=== PATIENT | male | born 2000 | race Caucasian/White ===

== ENCOUNTER 2023-09-11 11:03 | Outpatient (AMB) | payer BC, SELFPAY ==
[2023-09-11 11:10] VITALS: BP 116/78; PULSE 80; O2SAT 97; BMI 36.9
--- NOTE | 2023-09-11 11:10 | A.OFFPC_ITS ---
Vital Signs 09/11/23 11:10 Height 6 ft Weight 272 lb 4 oz BMI 36.9 BP 116/78 Blood Pressure Location Rt brachial Position Sitting Pulse 80 Pulse Source Pulse Oximeter Pulse Oximetry (%) 97 Oxygen Delivery Method Room Air Intake Visit Reasons: Est Care Intake Note: Pt is here to est care Allergies No Known Allergies Allergy (Verified 09/11/23 11:19) Medication List - Last Reconciled 09/11/23 by NATHANIEL Macedo No Known Home Meds Tobacco use date assessed: 09/11/23 Dental Screening Dental Screen Date: 09/11/23 Did you have a dental visit in the last 12 months?: No Did you have a dental problem in the last 6 months where you did not have access to dental care?: No Was dental information given to patient?: Patient has dentist HPI HPI Comments History of Present Illness Details This is a 23-year-old male who I am meeting for the 1st time. He will send us records from his previous provider. Will order labs today. Patient is currently offering complaints of postnasal drip for the past 2 years which is causing sore throat. States he has not tried any medication yet for relief, has just tried drinking water and trying to stay hydrated. Denies recent fever, shortness of breath, chest pain. [facility] Medical History (Updated 09/11/23 @ 11:46 by NATHANIEL Macedo) Testicular torsion Family History Paternal Grandfather Mental health disorder Diabetes Mother No problems noted. Social History Housing: Apartment Patient Tobacco Use Status: Never used Tobacco e-Cigarette/Vaping Use: Never Used Second Hand Smoke Exposure: No service: No Current occupational status: employed Current occupation: [employer] Current occupational exposures/hazards: Yes Cognitive needs: No Hearing needs: No Vision needs: No Questionnaire PHQ-9 Over the last 2 weeks, how often have you been bothered by any of the following problems? 1. Little interest or pleasure in doing things: not at all 2. Feeling down, depressed, or hopeless: not at all 3. Trouble falling or staying asleep, or sleeping too much: not at all 4. Feeling tired or having little energy: not at all 5. Poor appetite or overeating: nearly every day 6. Feeling bad about yourself - or that you are a failure or have let yourself or your family down: not at all 7. Trouble concentrating on things, such as reading the newspaper or watching television: not at all 8. Moving or speaking so slowly that other people could have noticed. Or the op posite - being so fidgety or restless that you have been moving around a lot more than usual: not at all 9. Thoughts that you would be better off or of hurting yourself in some way: not at all Total score: 3 Depression Screening Interpretation: Negative Depression Screening Done: Yes 47825 - PHQ-9 Billing: Yes Source: Developed by Drs. Sam Avelar, Lorna Morton, Darren Esquivel and colleagues, with an educational jovita from [employer]. Thrive Questionnaire Date Thrive assessed: 09/11/23 I am a: Patient What is your living situation today?: I have a steady place to live Within the past 12 months, did the food you bought not last and you didn't have the money to get more?: Never true Within the past 12 months, did you worry whether your food would run out before you got money to buy more?: Never true Do you have trouble paying for medicines?: Yes Do you have trouble getting transportation to medical appointments?: No Do you have trouble paying your heating and electricity bill?: Yes Do you have trouble taking care of your child, family member or friend?: No Do you have trouble with day-to-day activities such as bathing, preparing meals, shopping, managing finances, etc.?: No Are you currently unemployed and looking for a job?: No Are you interested in more education?: No THRIVE Score: 1 AUDIT C Alcohol Use Questionnaire (AUDIT-C) 1. How often do you have a drink containing alcohol?: Never Total Score: 0 BEATRIS-7 AMB Questionnaire BEATRIS-7 Date BEATRIS - 7 assessed: 09/11/23 Feeling nervous, anxious, or on edge: 0 = Not at all Not being able to stop or control worryin = Not at all Worrying too much about different things: 0 = Not at all Trouble relaxin = Not at all Being so restless that it is hard to sit still: 0 = Not at all Becoming easily annoyed or irritable: 0 = Not at all Feeling afraid as if something awful might happen: 0 = Not at all Total BEATRIS-7 score (0-4 normal; 5-9 mild; 10-14 moderate; 15-21 severe): 0 Source: Developed by Drs. Sam Avelar, Lorna Morton, Darren Esquivel and colleagues, with an educational jovita from [employer]. BEATRIS-7 Assessment Billing BEATRIS-7 Assessment Tool: BEATRIS-7 Assessment 05066 Review of Systems Const Details: Constitutional : No Weight loss, No Fever, No Chills, No Fatigue, No Malaise ENT/Mouth : Admits sore throat, No Rhinorrhe, Admits post nasal drip Eyes: No Eye Pain, No Swelling, No Redness Cardiovascular : No Chest Pain, No SOB, No Dyspnea on Exertion, No Orthopnea, No Edema, No Palpitations Respiratory : No Cough, No Sputum, No Wheezing Musculoskeletal : Admits upper and lower back pain. Neuro : No Weakness, No Numbness, No Dizziness, No Headache Psych : No Anxiety/Panic, No Depression All other systems reviewed and are negative Physical exam (Primary Care) Vital Signs: Last Vital Signs Pulse 80 09/11/23 11:10 BP 116/78 09/11/23 11:10 Pulse Ox 97 09/11/23 11:10 Oxygen Delivery Method Room Air 09/11/23 11:10 BMI result Body Mass Index 36.9 Tobacco/Smoking Status: Tobacco use Status Tobacco use date assessed 09/11/23 09/11/23 11:16 Patient Tobacco Use Status Never used Tobacco 09/11/23 11:16 e-Cigarette/Vaping Use Never Used 09/11/23 11:16 PHQ-9: PHQ-9 Score PHQ-9: Total score 3 09/11/23 11:46 Depression Screening Interpretation: Negative Thrive Assessment: Date of Thrive Assessment Date Thrive assessed 09/11/23 09/11/23 11:46 Const Other: Appearance: Alert.? Oriented X3.? No acute distress.? Head: Normocephalic, atraumatic. ENT: Pharynx cobblestone, erythema, + post nasal drip. ? Neck: Normal inspection.? Neck supple.? Back: No obvious deformity or point tenderness. CVS: Normal heart rate and rhythm.? Pulses normal.? Respiratory: No respiratory distress.? Breath sounds normal.? Neuro: Oriented X 3.? No motor deficit.? No sensory deficit. 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 States sometimes is difficult for him to change positions cause the pain. Will order x-ray. Patient instructed that he can use [id number] Salonpas, ibuprofen, or Tylenol. Will get back to patient with results. Code(s): M54.9 - Dorsalgia, unspecified (2) Lower back pain: Comment: Patient states he also has lower back pain, history of scoliosis. Will order lumbar x-ray. Patient can take ibuprofen, Tylenol, or Salonpas. Will get back to patient with x-ray results. Patient is interested in physical therapy, will refer Code(s): M54.50 - Low back pain, unspecified Qualifiers: Back pain laterality: unspecified Chronicity: unspecified Sciatica presence: without sciatica Qualified Code(s): M54.50 - Low back pain, unspecified (3) Post-nasal drip: Comment: Patient has been given fluticasone to be taken as directed he has also been directed take [id number] Zyrtec. Code(s): R09.82 - Postnasal drip (4) GERD (gastroesophageal reflux disease): Comment: Patient has been prescribed omeprazole to be taken in the morning before he eats. Patient has been instructed on the side effects of these medications. Code(s): K21.9 - Gastro-esophageal reflux disease without esophagitis Qualifiers: Esophagitis presence: without esophagitis Qualified Code(s): K21.9 - Gastro-esophageal reflux disease without esophagitis Plan: Take your medications as prescribed. If you were prescribed antibiotics today, it is important that you take your medication to their entirety, do not skip any doses, do not finish them early. Follow-up with your primary care provider this week. Return to the emergency department with new or worsening symptoms. Such as fevers, chills, chest pain, shortness of breath, nausea, vomiting, dizziness, headache, vision changes, lethargy In case of emergency call 911 Plan Patient will follow-up in 3 months for physical exam Orders: Orders Complete Blood Count Auto Diff Today Z13.0 - Encounter for screening for diseases of the blood and blood-forming organs and certain disorders involving the immune mechanism TSH reflex Free T4 Today Z13.29 - Encounter for screening for other suspected endocrine disorder Vitamin B6 Today Z13.21 - Encounter for screening for nutritional disorder Vitamin D 25-OH (D2 and D3) Today Z13.21 - Encounter for screening for nutritional disorder XR lumbar spine 2-3V Today M54.50 - Low back pain, unspecified Comprehensive Met. Panel Today Z91.89 - Other specified personal risk factors, not elsewhere classified UA CC w/rflx Micro + Cult Today Z13.89 - Encounter for screening for other disorder Vitamin B12 Today Z13.21 - Encounter for screening for nutritional disorder Lipid Panel 1 Month Z13.220 - Encounter for screening for lipoid disorders XR cervical spine 2V Today M54.9 - Dorsalgia, unspecified PT Evaluation and Treatment Today M54.50 - Low back pain, unspecified Medications: New omeprazole 20 mg PO DAILY 30 caps 0RF fluticasone propionate 50 mcg/actuation (Allergy Relief (fluticasone)) administer into each nostril 2 sprays intranasal DAILY 16 grams 0RF Coding Level of Care Code New Pt Level 3 (93019) Diagnoses Upper back pain M54.9 Low back pain without sciatica, unspecified back pain laterality, unspecified chronicity M54.50 Back pain laterality: unspecified Chronicity: unspecified Sciatica presence: without sciatica Post-nasal drip R09.82 Gastroesophageal reflux disease without esophagitis K21.9 Esophagitis presence: without esophagitis Additional Codes BEATRIS-7 Assessment Billing - BEATRIS-7 Assessment Tool: BEATRIS-7 Assessment 02398 ([id number]) Time Spent (min) 30
== END 2023-09-11 11:41 | disposition home or self-care (01) ==
PROVIDERS: PCP Nurse Practitioner Family; Visit Provider Nurse Practitioner Primary Care
DX: M54.9 Dorsalgia, unspecified (principal); M54.50 Low back pain, unspecified; R09.82 Postnasal drip; K21.9 Gastro-esophageal reflux disease without esophagitis
CPT/HCPCS: 99203

== ENCOUNTER 2023-09-11 11:46 | Outpatient (REF) | payer BC, SELFPAY ==
--- NOTE | ~2023-09-11 | XR_ITS ---
EXAMINATION: XR CERVICAL SPINE, LUMBAR SPINE INDICATION: Low back pain, neck pain. COMPARISON: None available. TECHNIQUE: 3 views of the lumbar spine. 3 views of the cervical spine. FINDINGS: Lumbar Spine: Mild degenerative changes in the bilateral sacroiliac joints. Mild leftward curvature at the thoracolumbar junction. Facet arthritis in the lower lumbar spine. Straightening of the normal lumbar lordosis. Mild multilevel lumbar spondylosis with mild loss of disc space height at L4-L5. Cervical Spine: Mild multilevel cervical spondylosis cervical disc space heights are preserved. Alignment maintained. XR/XR lumbar spine 2-3V IMPRESSION: 1. Mild multilevel cervical spondylosis. 2. Mild multilevel lumbar spondylosis with mild loss of disc space height at L4-L5.
--- NOTE | ~2023-09-11 | XR_ITS ---
EXAMINATION: XR CERVICAL SPINE, LUMBAR SPINE INDICATION: Low back pain, neck pain. COMPARISON: None available. TECHNIQUE: 3 views of the lumbar spine. 3 views of the cervical spine. FINDINGS: Lumbar Spine: Mild degenerative changes in the bilateral sacroiliac joints. Mild leftward curvature at the thoracolumbar junction. Facet arthritis in the lower lumbar spine. Straightening of the normal lumbar lordosis. Mild multilevel lumbar spondylosis with mild loss of disc space height at L4-L5. Cervical Spine: Mild multilevel cervical spondylosis cervical disc space heights are preserved. Alignment maintained. XR/XR cervical spine 2V IMPRESSION: 1. Mild multilevel cervical spondylosis. 2. Mild multilevel lumbar spondylosis with mild loss of disc space height at L4-L5.
[2023-09-11 13:01] LABS: Appearance Urine Clear; Color Urine Yellow; Glucose Urine UA Negative (Negative); Leukocyte Esterase Urine Negative (Negative); Nitrite Urine Negative (Negative); PH 5.5 (5.0-9.0); Specific Gravity - Urine >= 1.030 (1.005-1.025); Urine Blood Negative (Negative); Urine Ketones Negative (Negative); Urine Protein Negative (Neg-Trace)
[2023-09-11 13:14] LABS: MANUAL DIFF FLAG NO
[2023-09-11 13:30] LABS: Basophils Percent Auto 0.3 % (0-2); Eosinophils Absolute Auto 0.1 X10*3/uL (0.0-0.4); Eosinophils Percent Auto 1.5 % (0-4); Hemoglobin 14.8 g/dl (14.0-18.0); Imm Gran Abs Auto 0.03 X10*3/uL (0.00-0.03); Imm Gran Pct Auto 0.4 % (0.0-0.4); Lymphocytes Absolute Auto 2.1 X10*3/uL (1.2-4.9); Lymphocytes Percent Auto 30.6 % (20-40); Mean Corpuscular HGB Conc 32.2 g/dl (31.0-36.0); Mean Corpuscular Hemoglobin 28.6 pg (27.0-33.0); Mean Platelet Volume 9.6 fL (9.4-12.4); Monocytes Absolute Auto 0.3 X10*3/uL (0.1-1.2); Monocytes Percent Auto 4.1 % (2-11); Neutrophils Absolute Auto 4.4 x10*3/uL (2.0-8.3); Neutrophils Percent Auto 63.1 % (45-73); Platelet Count 192 X10*3/uL (160-400); Red Blood Count 5.17 X10*6/uL (4.60-5.80); Red Cell Distribution Width 12.6 % (11.0-16.0); White Blood Count 6.9 X10*3/uL (4.8-10.8)
[2023-09-11 14:47] LABS: Alanine Aminotransferase 31 U/L (0-40); Albumin Level 4.7 g/dL (3.5-5.0); Alkaline Phosphatase 114 U/L (39-117); Anion Gap 12 (12-20); Aspartate Amino Transferase 21 U/L (5-37); Bilirubin Total 0.3 mg/dL (0.0-1.0); Blood Urea Nitrogen 16 mg/dL (9-16); Calcium 9.8 mg/dL (8.4-10.2); Carbon Dioxide 29 mmol/L (22-29); Chloride 108 mmol/L (96-108); Estimated Glomerular Filt Rate > 60; Glucose Random 95 mg/dL (60-115); Potassium 4.2 mmol/L (3.3-5.1); Sodium 145 mmol/L (135-145)
[2023-09-11 15:11] LABS: Vitamin B12 613 pg/mL (200-900)
[2023-09-16 06:24] LABS: Vitamin D 25-OH, D2 <4 ng/mL; Vitamin D 25-OH, D3 18 ng/mL; Vitamin D 25-OH, Total 18 ng/mL (30-100)
[2023-09-16 15:49] LABS: Vitamin B6 30.8 ng/mL (2.1-21.7)
== END 2023-09-11 11:47 | disposition home or self-care (01) ==
LOC: HO.HMGCX 11:46
PROVIDERS: PCP Nurse Practitioner Primary Care; Visit Provider Nurse Practitioner Primary Care
DX: Z13.0 Encounter for screening for diseases of the blood and blood-forming organs and certain disorders involving the immune mechanism (principal); Z13.21 Encounter for screening for nutritional disorder; Z13.89 Encounter for screening for other disorder; Z13.29 Encounter for screening for other suspected endocrine disorder; M54.50 Low back pain, unspecified; M54.9 Dorsalgia, unspecified; Z91.89 Other specified personal risk factors, not elsewhere classified
CPT/HCPCS: 36415; 72040; 72100; 80053; 81003; 82306; 82607; 84207; 84443; 85025

== ENCOUNTER 2023-12-11 10:10 | Outpatient (AMB) | payer BC, SELFPAY ==
[2023-12-11 10:14] VITALS: BP 114/70; PULSE 56; O2SAT 98; BMI 37.0
--- NOTE | 2023-12-11 10:14 | A.OFFPC_ITS ---
Vital Signs 12/11/23 10:14 12/11/23 10:50 Height 6 ft Weight 273 lb BMI 37.0 BP 114/70 Blood Pressure Location Lt brachial Position Sitting Pulse 56 66 Pulse Source Pulse Oximeter Auscultation Pulse Oximetry (%) 98 Oxygen Delivery Method Room Air Intake Visit Reasons: Annual PE Intake Note: pt here for annual PE. Last TDAP unknown Allergies No Known Allergies Allergy (Verified 12/11/23 10:47) Medication List - Last Reconciled 12/11/23 by NATHANIEL Macedo fluticasone propionate 50 mcg/actuation (Allergy Relief (fluticasone)) 2 sprays intranasal DAILY omeprazole 20 mg PO DAILY Tobacco use date assessed: 12/11/23 Dental Screening Dental Screen Date: 12/11/23 Did you have a dental visit in the last 12 months?: No Did you have a dental problem in the last 6 months where you did not have access to dental care?: No Was dental information given to patient?: Patient has dentist HPI HPI Comments History of Present Illness Details Patient is a 23-year-old male in for his physical exam. Patient is due for tetanus booster today. Has declined. will come make appointment to come back and get within the next month. He has a past medical history significant for: Gastric reflux-currently utilizing omeprazole 20 mg p.o. daily with moderate effect. Mild cervical and lumbar spondylosis of the spine. Patient was given referral to Physical therapy has not yet pursued that. Would like to. Will follow up. [facility] Medical History (Updated 12/11/23 @ 10:50 by NATHANIEL Macdeo) Testicular torsion Surgical History No pertinent past surgical history Family History Paternal Grandfather Mental health disorder Diabetes Mother No problems noted. Social History Housing: Apartment Patient Tobacco Use Status: Never used Tobacco e-Cigarette/Vaping Use: Never Used Second Hand Smoke Exposure: No service: No Current occupational status: employed Current occupation: [employer] Current occupational exposures/hazards: Yes Cognitive needs: No Hearing needs: No Vision needs: No Questionnaire Thrive Questionnaire Date Thrive assessed: 09/11/23 AUDIT C Alcohol Use Questionnaire (AUDIT-C) 1. How often do you have a drink containing alcohol?: Never Total Score: 0 BEATRIS-7 AMB Questionnaire BEATRIS-7 Date BEATRIS - 7 assessed: 09/11/23 Source: Developed by Drs. Sam Avelar, Lorna Morton, Darren Esquivel and colleagues, with an educational jovita from [employer]. Review of Systems Const All systems reviewed & are unremarkable except as noted in HPI and below Physical exam (Primary Care) Care Plan Goal for BP management: Blood pressure controlled stable. Tobacco/Smoking Status: Tobacco use Status Tobacco use date assessed 09/11/23 09/11/23 11:16 Patient Tobacco Use Status Never used Tobacco 09/11/23 11:16 e-Cigarette/Vaping Use Never Used 09/11/23 11:16 Thrive Assessment: Date of Thrive Assessment Date Thrive assessed 09/11/23 09/11/23 11:46 Const Other: Appearance: Alert.? Oriented X3.? No acute distress.? Head: Normocephalic, atraumatic, no step-offs or deformities Eyes: Pupils equal, round and reactive to light.? ENT: Pharynx erythema and post nasal drip.?TM intact and pearly mahoney. Neck: Normal inspection.? Neck supple.? CVS: Normal heart rate and rhythm.? Pulses normal.? Respiratory: No respiratory distress.? Breath sounds normal.? Abdomen: Soft and nontender.? : Testes normal. No inguinal hernia. Skin: Skin warm and dry.? Normal skin color.? Normal skin turgor.? Extremities: No lower extremity edema.?5/5 Strength to bilateral upper and lower extremities Back: No midline tenderness, no C-spine tenderness, full range of motion, no CVA tenderness bilaterally. +discomfort with forward flextion. Neuro: Oriented X 3.? No motor deficit.? No sensory deficit. CN 2-12 intact Assessment and Plan Assessment & Plan (1) Encounter for physical examination: Code(s): Z00.00 - Encounter for general adult medical examination without abnormal findings Plan: Will redraw labs including CBC, CMP, vitamin-D. Patient is making appointment to follow up with nurse for Tdap immunization. Has been educated on the importance of diet as patient would like to lose some weight. Believes it would help his lumbar pain which I agree with. (2) GERD (gastroesophageal reflux disease): Comment: Utilizing omeprazole with moderate effect. Patient has been educated on foods to avoid. Has been educated to avoid food 3 hours prior to bedtime. Code(s): K21.9 - Gastro-esophageal reflux disease without esophagitis Qualifiers: Esophagitis presence: without esophagitis Qualified Code(s): K21.9 - Gastro-esophageal reflux disease without esophagitis (3) Post-nasal drip: Comment: Patient has been given fluticasone to be taken as directed he has also been directed take [id number] Zyrtec. Code(s): R09.82 - Postnasal drip (4) Lower back pain: Comment: Patient states he also has lower back pain, history of scoliosis. Will order lumbar x-ray. Patient can take ibuprofen, Tylenol, or Salonpas. Will follow-up with physical therapy for lumbar pain. Code(s): M54.50 - Low back pain, unspecified Qualifiers: Chronicity: unspecified Back pain laterality: unspecified Sciatica presence: without sciatica Qualified Code(s): M54.50 - Low back pain, unspecified Plan Follow-up for physical in 1 year. Orders: Orders Vitamin D 25-OH (D2 and D3) Today Z13.21 - Encounter for screening for nutritional disorder Basic Metabolic Panel Today Z91.89 - Other specified personal risk factors, not elsewhere classified Complete Blood Count Auto Diff Today Z13.0 - Encounter for screening for diseases of the blood and blood-forming organs and certain disorders involving the immune mechanism Review Declined TDap/Td: 12/11/23 Coding Level of Care Code Est Pt Prev Care 18-39y(90333) Diagnoses Encounter for physical examination Z00.00 Gastroesophageal reflux disease without esophagitis K21.9 Esophagitis presence: without esophagitis Post-nasal drip R09.82 Low back pain without sciatica, unspecified back pain laterality, unspecified chronicity M54.50 Chronicity: unspecified Back pain laterality: unspecified Sciatica presence: without sciatica Time Spent (min) 26
[2023-12-11 10:50] VITALS: PULSE 66
== END 2023-12-11 10:42 | disposition home or self-care (01) ==
PROVIDERS: PCP Nurse Practitioner Family; Visit Provider Nurse Practitioner Primary Care
DX: Z00.00 Encounter for general adult medical examination without abnormal findings (principal); K21.9 Gastro-esophageal reflux disease without esophagitis; R09.82 Postnasal drip; M54.50 Low back pain, unspecified
CPT/HCPCS: 99395